=== PATIENT | female | born 1975 | race Caucasian/White ===

== ENCOUNTER 2016-11-17 13:41 | Day surgery (SDC) | payer OTHER ==
[~2016-11-17] VITALS: Ht 162.6 cm; Wt 97.5 kg
[~2016-11-17 13:41] MED LIST: HYDR-3363 PO; HYDR25TA6 PO; TOPA100T12 PO
[2016-11-17] MEDS ORDERED: LR 1,000 ML IV ONE (14:00)
[2016-11-17 14:39] LABS: MEAN CORPUSCULAR HEMOGLOBIN 30.3 pg (27.0-33.0); MEAN CORPUSCULAR HGB CONC 33.8 g/dl (32.0-36.5); MEAN CORPUSCULAR VOLUME 89.7 fl (80.0-96.0); RED CELL DISTRIBUTION WIDTH 12.7 % (11.5-14.5); WHITE BLOOD COUNT 8.1 K/mm3 (4.0-10.0)
[2016-11-17 14:52] LABS: ANION GAP 7 MEQ/L (8-16); BLOOD UREA NITROGEN 19 MG/DL (7-18); CALCIUM LEVEL 9.4 MG/DL (8.5-10.1); CARBON DIOXIDE LEVEL 26 MEQ/L (21-32); CHLORIDE LEVEL 108 MEQ/L (98-107); CREATININE FOR GFR 0.97 MG/DL (0.55-1.02); GLOMERULAR FILTRATION RATE > 60.0 (>58); GLUCOSE, FASTING 85 MG/DL (70-105); POTASSIUM SERUM 4.1 MEQ/L (3.5-5.1); SODIUM LEVEL 141 MEQ/L (136-145)
[2016-11-17 15:20] LABS: CONTROL LINE HCG INT CTR LINE PRESENT
[2016-11-17] MEDS ORDERED: fentaNYL 100 MCG/2 ML INJECTION (J3010) As Ordered ONE (18:38)
[2016-11-17] MEDS ORDERED: MIDAZOLAM INJ 2 MG/2 ML VIAL (J2250) As Ordered ONE (18:44)
[2016-11-17] MEDS ORDERED: HYDROmorphone HCL 2 MG/ML 1ML VIAL (J1170) As Ordered ONE (18:44)
[2016-11-17] MEDS ORDERED: PROPOFOL 200 MG/20 ML VIAL As Ordered ONE (18:44)
[2016-11-17] MEDS ORDERED: fentaNYL 250 MCG/5 ML INJECTION (J3010) As Ordered ONE (18:44)
[2016-11-17] MEDS ORDERED: ROCURONIUM BROMIDE 50 MG/5 ML VIAL/SYRINGE As Ordered ONE ×2 (18:44→18:45)
[2016-11-17] MEDS ORDERED: dexameTHASONE 4 MG/ML 1ML VIAL (J1100) As Ordered ONE (18:44)
[2016-11-17] MEDS ORDERED: ONDANSETRON 4MG/2ML VIAL (J2405) As Ordered ONE ×2 (18:44→19:37)
[2016-11-17] MEDS ORDERED: NEOSTIGMINE 1MG/ML 5 ML SYRINGE (J2710) As Ordered ONE (18:53)
[2016-11-17] MEDS ORDERED: GLYCOPYRROLATE INJ 0.2 MG/ML 2 ML VIAL As Ordered ONE (18:53)
[2016-11-17] MEDS: LR 1,000 ML IV SCH ×3 (19:35→21:45)
[2016-11-17] MEDS ORDERED: METOCLOPRAMIDE INJ 10MG/2ML VIAL (J2765) As Ordered ONE (19:42)
[2016-11-17] MEDS: fentaNYL 100 MCG/2 ML INJECTION (J3010) IV PRN ×3 (19:55→20:11)
[2016-11-17] MEDS ORDERED: METOCLOPRAMIDE INJ 10MG/2ML VIAL (J2765) IV PRN (20:00)
[2016-11-17] MEDS ORDERED: LR 1,000 ML IV SCH (20:00)
[2016-11-17] MEDS ORDERED: PERCOCET 5MG/325MG TAB PO PRN (20:00)
[2016-11-17] MEDS ORDERED: ONDANSETRON 4MG/2ML VIAL (J2405) IV PRN (20:00)
[2016-11-17] MEDS ORDERED: MORPHINE 1MG/ML IN 0.9% NACL 100ML IV BAG As Ordered ONE (20:53)
[2016-11-17 20:55] VITALS: BP 149/87
[2016-11-17 21:25] VITALS: BP 134/79
[2016-11-17] MEDS ORDERED: NALBUPHINE HCL 10 MG/ML AMP (J2300) IV PRN (21:45)
[2016-11-17] MEDS ORDERED: NALOXONE INJ 0.4 MG/1 ML VIAL (J2310) IV PRN (21:45)
[2016-11-17] MEDS ORDERED: IBUPROFEN 600 MG TAB PO PRN (21:45)
[2016-11-17] MEDS ORDERED: EPIDURAL/PCA KEYS XX PRN (21:45)
[2016-11-17] MEDS ORDERED: diphenhydrAMINE INJ 50MG/ML VIAL (J1200) IV PRN (21:45)
[2016-11-17] MEDS ORDERED: MORPHINE 1MG/ML IN 0.9% NACL 100ML IV BAG IV PRN (21:45)
[2016-11-17 21:55] VITALS: BP 138/71
[2016-11-17 23:00] VITALS: BP 135/71
[2016-11-18] VITALS: BP 125/73
--- NOTE | 2016-11-18 00:27 | ECGEPIP ---
Stationary ECG Study [facility] Test Date: 2016-11-17 Pat Name: MARION MARINA Department: Room: - Gender: F Trust Administrative Assistant: NICOLLE : 1975 Requested By: Mere Griffin Order Number: [id number] Reading MD: Chintan Wong Measurements Intervals [place] Rate: 63 P: 25 TX: 221 QRS: 27 QRSD: 94 T: 34 QT: 414 QTc: 426 Interpretive Statements SINUS RHYTHM WITH FIRST DEGREE AV BLOCK Comparison tracing not on file Electronically Signed On 11-18-2016 0:26:59 EDT by Chintan Wong
[2016-11-18 01:00] VITALS: BP 118/58
[2016-11-18 02:05] VITALS: BP 120/64
[2016-11-18 04:00] VITALS: BP 117/68
[2016-11-18] MEDS: LR 1,000 ML IV SCH (05:45)
[2016-11-18] MEDS: NORCO, ANEXSIA 5/325MG TABLET (HYDROcodone/ACETAMINOPHEN) PO PRN ×2 (06:05→10:57)
[2016-11-18 06:56] LABS: MEAN CORPUSCULAR HEMOGLOBIN 30.9 pg (27.0-33.0); MEAN CORPUSCULAR HGB CONC 34.6 g/dl (32.0-36.5); MEAN CORPUSCULAR VOLUME 89.2 fl (80.0-96.0); RED CELL DISTRIBUTION WIDTH 12.5 % (11.5-14.5); WHITE BLOOD COUNT 14.7 K/mm3 (4.0-10.0)
[2016-11-18 08:00] VITALS: BP 120/72
[2016-11-18] MEDS ORDERED: NORC1TAB4 PO (09:25)
[2016-11-18] MEDS ORDERED: VIST25CA PO (09:25)
[2016-11-18] MEDS ORDERED: MOTR200T44 PO (09:25)
[2016-11-18] MEDS ORDERED: hydrOXYzine 25 MG TAB PO SCH (21:00)
[2016-11-18] MEDS ORDERED: TOPIRAMATE (TopAMAX) 100 MG TAB PO SCH (21:00)
[2016-11-18] MEDS ORDERED: HYDROCHLOROthiazide 6.25MG PER 1/4TAB PO SCH (21:00)
--- NOTE | 2016-11-19 08:35 | RO ---
DATE OF PROCEDURE: 11/17/2016 PREOPERATIVE DIAGNOSIS: Pain, irregular bleeding and failed ablation. POSTOPERATIVE DIAGNOSIS: Pain, irregular bleeding and failed ablation. PROCEDURE: Total vaginal hysterectomy with bilateral salpingectomy. The patient retains her ovaries. SURGEON: Dr. Mere Norman ARMORED CABLE MACHINE OPERATOR: Dr. Titus. ANESTHESIA: General endotracheal anesthesia. DESCRIPTION OF PROCEDURE: Skylar was brought to the operating room where sufficient general endotracheal anesthesia was induced, and she was prepped, draped and positioned in the usual sterile fashion. With the weighted speculum placed, the bladder emptied and the anterior and posterior aspects of the cervix grasped with single-tooth tenaculum. A circumferential incision was made around the base of the cervix with a scalpel and the cardinal ligaments were isolated, clamped with [place] clamps and transected using the SuperCut scissors, which were used throughout. #0 Vicryl suture was then used for the pedicles, and the dissection was then continued posteriorly where the peritoneal reflection was incised. The uterosacral ligaments were then clamped, transected and ligated, again using [place] clamps, SuperCut scissors and #0 Vicryl suture, again which was used throughout. Attention was then turned anteriorly, and the dissection continued to the bladder flap and the uterine vasculature was then carefully clamped, transected and ligated in sequential fashion along the lateral aspect of the uterus until the level of the utero-ovarian suspensory ligaments was reached. And these too were clamped, transected and ligated. The ovaries were normal appearing bilaterally. There was a small physiologic cyst on the right side, and the round ligaments were also clamped, transected and ligated and then the fallopian tube on the left side was clamped, transected and ligated and labeled for later reidentification. The dissection was continued on the right side through the fallopian tube pedicle. Once we had most of that mesentery clamped, transected and ligated, we went ahead and it from the uterus so as to facilitate the view. But we then continued through that tube to the fimbriated end. With the right tube out, we went back to the left tube where it had already been labeled and used a [place] to grasp the tube, follow it to the fimbriated end and starting at the fimbriated end, worked our way back through the tube to the pedicle we had already transected. We did end up with a knuckle of tube from the fimbriated end, I took it in a couple of pieces but we did also remove that left tube and then used a sponge on a stick to evaluate the pedicles for more ready visualization. There was no evidence of ureteral, bladder or bowel injury. The pedicles showed good hemostasis and angle stitches in the cuff were then taken with #0 Vicryl suture, the uterosacrals were incorporated into the closure and a running locked stitch was used to close the cuff, again of #0 Vicryl. Good hemostasis and approximation were achieved, and the procedure was then ended with a Jane placed after the case. Estimated blood loss for the case: About 75 mL. Fluid replacement was crystalloid. Complications: None. Condition and Disposition: Skylar tolerated the procedure well and was recovering in the recovery room in good condition.
== END 2016-11-18 11:06 | disposition home or self-care (01) ==
LOC: M SDC 13:41 → M PED 20:43 → M SDC 11-18 11:06
PROVIDERS: ATTEND Obstetrics & Gynecology
DX: N93.9 Abnormal uterine and vaginal bleeding, unspecified (principal); R10.2 Pelvic and perineal pain; I10 Essential (primary) hypertension; J45.909 Unspecified asthma, uncomplicated; R21 Rash and other nonspecific skin eruption; G43.909 Migraine, unspecified, not intractable, without status migrainosus; Z79.899 Other long term (current) drug therapy
CPT/HCPCS: 36415; 58262; 80048; 84703; 85027; 86850; 86900; 86901; 88307; 93005; J0690; J1100; J1170; J2250; J2405; J2710; J2765; J3010

== ENCOUNTER → 2017-12-08 | Outpatient (REF) | payer OTHER | LOC: M SFHCLERA 14:43 | DX: J02.9 Acute pharyngitis, unspecified (principal) ==

== ENCOUNTER → 2018-04-08 | Outpatient (REF) | payer OTHER ==
[~2018-04-08] MED LIST changes: +MOTR200T44 PO; +NORC1TAB4 PO; +VIST25CA PO
== END ==
LOC: M SFHCLERA 12:06
PROVIDERS: ATTEND Physician Assistant
DX: J02.9 Acute pharyngitis, unspecified (principal)

== ENCOUNTER → 2018-10-30 | Outpatient (REF) | payer OTHER ==
[~2018-10-30] MED LIST changes: -NORC1TAB4 PO; +NORC1TAB7 PO
== END ==
LOC: M SFHCLERA 15:47
PROVIDERS: ATTEND Nurse Practitioner Family
DX: J02.9 Acute pharyngitis, unspecified (principal)

== ENCOUNTER → 2022-10-19 | Outpatient (CLI) | payer BC | LOC: M WHC 11:24 | PROVIDERS: ATTEND Advanced Practice Midwife | DX: Z12.31 Encounter for screening mammogram for malignant neoplasm of breast (principal) ==

== ENCOUNTER → 2023-11-21 | Outpatient (CLI) | payer BC | LOC: M WHC 12:19 | PROVIDERS: ATTEND Advanced Practice Midwife | DX: Z12.31 Encounter for screening mammogram for malignant neoplasm of breast (principal) ==

== ENCOUNTER → 2025-01-14 | Outpatient (CLI) | payer BC | LOC: M WHC 14:30 | PROVIDERS: ATTEND Advanced Practice Midwife | DX: Z12.31 Encounter for screening mammogram for malignant neoplasm of breast (principal) ==

== ENCOUNTER → 2025-01-14 | Outpatient (CLI) | payer BC ==
[2025-01-14 19:08] LABS: CHOLESTEROL LEVEL 135.0 MG/DL (<200); CHOLESTEROL RISK RATIO 2.77 (<5); LDL CHOLESTEROL 65.0 MG/DL (<100); NON-HDL-C 86.4 MG/DL; TRIGLYCERIDES LEVEL 107.0 MG/DL (<150)
== END ==
LOC: M PLALAB 16:33
PROVIDERS: ATTEND Physician Assistant
DX: N95.1 Menopausal and female climacteric states (principal)